=== PATIENT | male | born 1975 | race Caucasian/White ===

== ENCOUNTER 2016-10-22 18:10 | Inpatient (IN) ==
[2016-10-22] MEDS ORDERED: NITROGLYCERIN SL 0.4 MG TABLET SL PRN (18:16)
[2016-10-22] MEDS ORDERED: ASPIRIN 325 MG TABLET PO STA (18:16)
--- NOTE | 2016-10-22 18:24 | EKG Report ---
Stationary ECG Study [facility] ER Test Date: 10/22/2016 6:23:12 PM Pat Name: KEISHA AGUILAR Department: Room: Gender: M Electrical Tech/Project Manager: : 1975 Requested by: Radhika Tang Order Number: [id number] Reading MD: RAYSHAWN INFANTE Intervals Reeder Rate: 102 P: 52 NM: 173 QRS: -6 QRSD: 95 T: 53 QT: 322 QTc: 380 Interpretive Statements SINUS TACHYCARDIA INCOMPLETE RBBB Electronically Signed On 10-24-16 15:52:13 CDT by RAYSHAWN INFANTE [email or web address]
[2016-10-22 18:39] LABS: Basophils # 0.1 10*3/uL (0.0-0.2); Basophils % 0.7 % (0.0-0.8); Eosinophils # 0.2 10*3/uL (0.0-0.87); Eosinophils % 2.4 % (0.00-10.9); Hematocrit 35.1 VOL% (42.0-52.0); Immature Granulocytes % 0.6 %; Immature Granulocytes Absolute 0.04 #; Lymphocytes # 2.2 10*3/uL (1.4-4.0); Lymphocytes % 31.4 % (21.2-54.2); Mean Corpuscular Hemoglobin 30 PG (27-34); Mean Corpuscular Volume 81.6 FL (87-102); Mean Platelet Volume 10.5 FL (9.6-12.0); Monocytes # 0.4 10*3/uL (0.11-0.8); Neutrophils # 4.2 10*3/uL (1.4-7.4); Neutrophils % 59.9 % (38.7-73.9); Platelet Count 227 T/CUMM (130-400); Red Cell Distribution Width 13.2 % (9.3-17.3)
[2016-10-22] MEDS ORDERED: ASPIRIN 325 MG TABLET ONE (18:47)
[2016-10-22] MEDS ORDERED: NITROGLYCERIN SL 0.4 MG TABLET SL ONE (18:47)
--- NOTE | 2016-10-22 18:53 | XRay Report ---
XR chest 1V portable Indication: Chest pain. Comparison: Chest x-ray 04/22/2016 Technique: Portable AP chest was performed. Findings: Heart size is normal. Pulmonary vasculature appears within normal limits. No significant abnormality of the mediastinal contours demonstrated. Lungs are clear. Bones and soft tissues demonstrate no significant abnormalities. Impression: 1. No evidence of acute pathology. 10/22/2016 6:49 PM PROCEDURE INTERPRETED AT [facility] DEPARTMENT OF RADIOLOGY Final Report Signed by: Dr. Josiah Mittal
[2016-10-22 19:03] LABS: Apearance,Urine CLEAR (Clear); Bilirubin,Urine Negative (Negative); Blood, Urine Negative (Negative); Glucose,Urine (UA) >=500 mg/dL (Negative); Hyaline Casts,Urine 1 /LPF (0-3); Ketones,Urine 5 mg/dL (Negative); Mucus,Urine Occasional /LPF (Occasional); Nitrite,Urine Negative (Negative); Protein,Urine Negative; RBC,Urine <1 /HPF (0-4); Squamous Epithelial Cell,Urine Occasional /HPF (0-10); Urine Color Yellow (Yellow); Urine Specific Gravity 1.025 (1.001-1.035); Urine Urobilinogen < 2.0 EU/DL (0.2-1.0); WBC,Urine 3 /HPF (0-6)
[2016-10-22 19:08] LABS: Barbiturates Screen,Urine Negative (Negative); Benzodiazepines Screen,Urine Negative (Negative); Cannabinoid Screen,Urine Negative (Negative); Opiate Screen,Urine Negative (Negative); Phencyclidine Screen,Urine Negative (Negative)
[2016-10-22 19:26] LABS: Albumin 3.5 G/DL (3.4-5.0); Bilirubin,Total 0.6 MG/DL (0.2-1.0); Calcium 9.1 MG/DL (8.5-10.1); Osmolality,Calculated 288.9 MOS/KG (273-304); Potassium 4.1 MMOL/L (3.5-5.1); Total Protein 7.4 G/DL (6.4-8.3)
[2016-10-22] MEDS ORDERED: INSULIN LISPRO 100 UNIT/ML SUBCUT STA (19:28)
[2016-10-22] MEDS ORDERED: INSULIN LISPRO 100 UNIT/ML SUBCUT ONE (19:36)
[2016-10-22] MEDS ORDERED: SODIUM CHLORIDE 0.9% 1,000 ML IV STA (20:31)
--- NOTE | 2016-10-22 20:42 | CT Report ---
CT chest PE study Indication: Radicular chest pain. Comparison: None. Technique: CT of the chest was performed following the administration of intravenous contrast. In addition to multiple contiguous axial source images obtained from the thoracic inlet through the upper abdomen, coronal and sagittal MPR series were performed as were thin slab MIP reconstructions in the coronal and sagittal plane. The CT examination was performed using one or more of the following dose reduction techniques: Automatic exposure control, adjustment of the mA and kV according to patient size, or iterative reconstruction techniques. Findings: The pulmonary artery averages 244 Hounsfield units of attenuation. No filling defects are present centrally to suggest pulmonary artery embolus. The segmental and subsegmental branches of the pulmonary artery are not well opacified. Lungs are clear. No pleural effusions are present. No endobronchial lesions are demonstrated. Aorta demonstrates no significant abnormality. 4 vessel arch anatomy is present. Heart size is normal. Esophagus is unremarkable. Gallbladder is surgically absent. The pancreas demonstrates peripancreatic fat stranding compatible with inflammation and acute pancreatitis. Upper abdomen is otherwise unremarkable. The imaged bony structures as well as soft tissues and musculature of the chest wall demonstrate no significant abnormalities. Impression: 1. Findings compatible with acute pancreatitis. Correlation with serum lipase is recommended. 2. No acute findings are demonstrated within the chest. There is minimal limitation with the interpretation of the study secondary to poor opacification of segmental and subsegmental branches of the pulmonary artery. Thrombus cannot be excluded within the subsegmental branches. 10/22/2016 8:37 PM PROCEDURE INTERPRETED AT [facility] DEPARTMENT OF RADIOLOGY Final Report Signed by: Dr. Josiah Mittal
[2016-10-22] MEDS ORDERED: GLUCAGON 1 MG VIAL IM PRN (21:03)
[2016-10-22] MEDS ORDERED: DEXTROSE 50% 25 GM/50 ML VIAL IV PRN (21:03)
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
[2016-10-22] MEDS: SODIUM CHLORIDE 0.9% 1,000 ML IV SCH (22:49)
[2016-10-22] MEDS: ENOXAPARIN 40 MG/0.4 ML SYRINGE SUBCUT SCH (22:54)
[2016-10-22] MEDS: INSULIN GLARGINE 100 UNIT/ML SUBCUT SCH (22:54)
[2016-10-22] MEDS ORDERED: DEXTROSE 50% 25 GM/50 ML SYRINGE IV PRN (23:00)
[2016-10-23] MEDS: ZALEPLON 5 MG CAPSULE PO PRN ×2 (02:51→22:49)
[2016-10-23] MEDS: ONDANSETRON 4 MG/2 ML VIAL IV PRN ×3 (05:43→22:50)
[2016-10-23] MEDS: SODIUM CHLORIDE 0.9% 1,000 ML IV SCH ×3 (05:45→22:53)
[2016-10-23 07:01] LABS: Osmolality,Calculated 282.8 MOS/KG (273-304); Potassium 3.8 MMOL/L (3.5-5.1)
[2016-10-23 08:34] LABS: Basophils % 0.7 % (0.0-0.8); Eosinophils # 0.2 10*3/uL (0.0-0.87); Eosinophils % 3.5 % (0.00-10.9); Hemoglobin 12.1 GM/DL (14.0-18.0); Immature Granulocytes % 0.7 %; Immature Granulocytes Absolute 0.04 #; Lymphocytes # 1.9 10*3/uL (1.4-4.0); Lymphocytes % 32.7 % (21.2-54.2); Mean Corpuscular HGB Conc 35.6 GM/DL (32-36); Mean Corpuscular Hemoglobin 30 PG (27-34); Mean Corpuscular Volume 83.1 FL (87-102); Mean Platelet Volume 11.4 FL (9.6-12.0); Monocytes # 0.4 10*3/uL (0.11-0.8); Monocytes % 6.7 % (1.7-12.7); Neutrophils # 3.3 10*3/uL (1.4-7.4); Neutrophils % 55.7 % (38.7-73.9); Platelet Count 213 T/CUMM (130-400); Red Blood Count 4.09 MC/CUMM (3.8-5.5); Red Cell Distribution Width 13.3 % (9.3-17.3); White Blood Count 5.9 T/CUMM (4-12)
[2016-10-23] MEDS: PREGABALIN 75 MG CAPSULE PO SCH ×2 (08:58→20:53)
[2016-10-23] MEDS: INSULIN REGULAR 100 UNIT/ML SUBCUT SCH ×4 (08:58→22:40)
[2016-10-23] MEDS: glipiZIDE 10 MG TABLET PO SCH ×2 (08:58→20:53)
[2016-10-23] MEDS: LOSARTAN 50 MG TABLET PO SCH (08:58)
[2016-10-23] MEDS: PANTOPRAZOLE 40 MG TABLET PO SCH (08:59)
[2016-10-23] MEDS ORDERED: CITALOPRAM 40 MG TABLET PO SCH (09:00)
--- NOTE | 2016-10-23 10:24 | Hospitalist Progress Note ---
Assessment and Plan (1) Periumbilical hernia Status: Chronic Assessment and plan: Impression: 1. Umbilical hernia. He does not have pancreatitis. PR has been ruled out with negative biomarkers. Plan: Await surgical evaluation. This note was completed using [employer] voice recognition software. There may be ore digger errors as a result. Current Visit: Yes Hospitalist: Subjective Interval history: Follow-up abdominal pain. The patient says that his pain is coming from a known umbilical hernia. He says that this has been present for a while, but started hurting a few days ago. For some reason, he received a CT pulmonary angiogram, and it did not show any pulmonary emboli. It did show some possible inflammation of the pancreas, but pancreatic markers were normal. He is also had several negative troponins which were drawn due to his "elevated cardiac risk." Exam - Constitutional Vitals: Period Temp Pulse Resp BP Sys/Hammer Pulse Ox Last 24 Hr 96.2 F-97.8 F 82-105 17-20 126-169/67-123 95-98 Vital signs are noted above. Heart is regular with no murmur or gallop. Lungs are clear with no rales or wheezes. Abdomen is tender over the anticipated area of the umbilical hernia. There is some firmness in the area and tenderness. He is awake and alert Results - Labs CBC & BMP: 10/23/16 05:24 10/23/16 05:24 Lab Results: I have reviewed the past 24 hour labs Specialty Discharge - Follow Up or Referrals
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
[2016-10-23] MEDS ORDERED: ceFAZolin 2,000 MG in PREMIX 1 EACH IV ONE (11:10)
[2016-10-23] MEDS: CITALOPRAM 20 MG TABLET PO SCH (20:53)
[2016-10-23] MEDS: ROSUVASTATIN 20 MG TABLET PO SCH (20:53)
[2016-10-23] MEDS: ENOXAPARIN 40 MG/0.4 ML SYRINGE SUBCUT SCH (20:53)
[2016-10-23] MEDS: ALLOPURINOL 300 MG TABLET PO SCH (20:53)
[2016-10-23] MEDS: INSULIN GLARGINE 100 UNIT/ML SUBCUT SCH (22:39)
[2016-10-24] MEDS: SODIUM CHLORIDE 0.9% 1,000 ML IV SCH ×3 (06:10→19:33)
[2016-10-24] MEDS: INSULIN REGULAR 100 UNIT/ML SUBCUT SCH ×4 (08:36→21:07)
[2016-10-24] MEDS ORDERED: BUPIVACAINE 0.25% /EPI 10 ML VIAL ONE (08:40)
[2016-10-24] MEDS ORDERED: LIDOCAINE 1%/EPI INJ 20 ML VIAL ONE (08:40)
[2016-10-24] MEDS ORDERED: INSULIN REGULAR 100 UNIT/ML ONE (08:56)
[2016-10-24] MEDS ORDERED: INSULIN REGULAR 100 UNIT/ML IV ONE (08:59)
[2016-10-24] MEDS ORDERED: GLUCAGON 1 MG VIAL IM PRN (10:25)
[2016-10-24] MEDS ORDERED: DEXTROSE 50% 25 GM/50 ML SYRINGE IV PRN (10:25)
--- NOTE | 2016-10-24 10:25 | Operative Note ---
Date of procedure: 10/24/16 Pre-op diagnosis: Recurrent incarcerated incisional hernia at umbilicus Post-op diagnosis: same Procedure: Repair recurrent incarcerated incisional hernia at umbilicus Findings and technique: After informed consent was obtained the patient was brought the operating room and placed in supine position. After successful induction of general anesthesia the patient's abdomen was prepped and draped in usual sterile fashion. His most recent CT scan did not go low enough to show the hernia. I looked at a CT scan from May which did show the hernia at the level of his previous mesh repair. I could palpate the hard mass which is been very tender in this patient just above and to the left of the umbilicus. Local anesthesia was infiltrated and a small vertical incision made above the umbilicus and sharp dissection carried down to this mass of indurated adipose tissue which appeared to represent herniated preperitoneal fat. This fat laid anterior to his previous mesh which could be visualized posterior to a fascial defect. The mesh was intact and in place. This indurated fat tracked down along the anterior aspect of the mesh to the inferior edge of the mesh where it was protruding just below the level of the umbilicus. I did a preperitoneal dissection anterior to his old mesh and passed the edge of the mesh in all directions. I did not try to remove this mesh as it was very well incorporated. I then took a piece of surgery mesh and cut this in an oval shape about 8 x 8 cm in size and this overlapped the old fascial defect is where well as another fascial defect just behind the umbilicus that was about a centimeter in size and then went down below this. This went lateral to the mesh to the right. This mesh was sutured to the posterior aspect of the fascia taking full-thickness bites through the fascia and these were done in a horizontal mattress fashion circumferentially going beneath the umbilical defect and well behind the fascial edges. This was then sutured as well to the edges of the old fascial defect were overlapped this as well. The wound was irrigated and good hemostasis noted. The subcutaneous layer was closed with multiple interrupted 3-0 Vicryl suture and skin with skin clips. He appeared to tolerate the procedure well. Anesthesia: GETA, local Surgeon / Physician: Ney Hdez III. Estimated blood loss: minimal Specimens: none sent Condition: stable Disposition: PACU Results - Labs CBC & BMP: 10/23/16 05:24 10/23/16 05:24 Discharge Plan - Discharge Medications No Action Pregabalin [Lyrica] 100 mg PO BID Losartan [Cozaar] 100 mg PO QAM Diclofenac Sodium 75 mg PO BID PRN PRN Reason: Pain Rosuvastatin [Crestor] 20 mg PO BEDTIME Citalopram [CeleXA] 20 mg PO BID Allopurinol 300 mg PO QPM metFORMIN [Glucophage] 850 mg PO BID W/MEALS #30 tablet glipiZIDE [Glipizide] 10 mg PO Q12HR #60 tablet Colchicine [Colcrys] 0.6 mg PO DAILY PRN PRN Reason: Gout Meloxicam 15 mg PO DAILY PRN PRN Reason: Muscle Spasm Pantoprazole Sodium [Protonix] 40 mg PO AC SUPPER Insulin Glargine [Lantus] 50 unit SUBCUT BEDTIME - Follow Up or Referral - Forms/Instructions Instructions: Chest Pain (ED)
[2016-10-24] MEDS ORDERED: DESFLURANE 1 UNIT/15 MINUTE INH ONE (10:39)
[2016-10-24] MEDS ORDERED: PROPOFOL 200 MG/20 ML VIAL IV ONE (10:39)
[2016-10-24] MEDS ORDERED: MIDAZOLAM 2 MG/2 ML VIAL ONE (10:40)
[2016-10-24] MEDS ORDERED: ONDANSETRON 4 MG/2 ML VIAL ONE (10:40)
[2016-10-24] MEDS ORDERED: fentaNYL 100 MCG/2 ML VIAL ONE (10:40)
[2016-10-24] MEDS ORDERED: ROCURONIUM 100 MG/10 ML VIAL IV ONE (10:40)
[2016-10-24] MEDS ORDERED: SUCCINYLCHOLINE 200 MG/10 ML VIAL ONE (10:40)
[2016-10-24] MEDS: PANTOPRAZOLE 40 MG TABLET PO SCH (13:51)
[2016-10-24] MEDS: PREGABALIN 75 MG CAPSULE PO SCH ×2 (13:51→21:09)
[2016-10-24] MEDS: CITALOPRAM 20 MG TABLET PO SCH ×2 (13:52→21:09)
[2016-10-24] MEDS: glipiZIDE 10 MG TABLET PO SCH ×2 (13:52→21:09)
[2016-10-24] MEDS: LOSARTAN 50 MG TABLET PO SCH (14:59)
--- NOTE | 2016-10-24 15:59 | Hospitalist Progress Note ---
Assessment and Plan (1) Periumbilical hernia Status: Chronic Assessment and plan: Impression: 1. Umbilical hernia. He does not have pancreatitis. MO has been ruled out with negative biomarkers. 2. Type II DM, glucoses around 300. Plan: Continue current plan of care for diabetes. Discharge when cleared by surgery This note was completed using [email or web address] voice recognition software. There may be pediatric nephrologist errors as a result. Current Visit: Yes Hospitalist: Subjective Interval history: Follow-up umbilical hernia and type II DM. The patient is now postop from the hernia repair. He complains of some incisional pain that is not unexpected. Glucoses have been around 300. Exam - Constitutional Vitals: Period Temp Pulse Resp BP Sys/Hammer Pulse Ox Last 24 Hr 97.0 F-99.7 F 82-102 18-20 133-164/63-91 93-98 Vital signs are noted above. Heart is regular with distant tones and no murmur. Chest is clear anteriorly. Abdomen reveals some positive bowel sounds. Since he is immediately postop, I did not palpate for mass. He is sleepy but arousable. Results - Labs CBC & BMP: 10/23/16 05:24 10/23/16 05:24 Lab Results: I have reviewed the past 24 hour labs Specialty Discharge - Follow Up or Referrals
--- NOTE | 2016-10-24 16:37 | Anesthesia Post-Op ---
Anesthesia Post OP - Post Ansesthetic Evaluation Patient seen in post op: Yes Resp: within normal limits CV: within normal limits Mental: within normal limits Temp: within normal limits Cett-[id number]-[id number]: within normal limits Nausea and Vomiting: within normal limits Pain: within normal limits
[2016-10-24] MEDS: INSULIN GLARGINE 100 UNIT/ML SUBCUT SCH (21:07)
[2016-10-24] MEDS: ENOXAPARIN 40 MG/0.4 ML SYRINGE SUBCUT SCH (21:08)
[2016-10-24] MEDS: ZALEPLON 5 MG CAPSULE PO PRN (21:08)
[2016-10-24] MEDS: ROSUVASTATIN 20 MG TABLET PO SCH (21:09)
[2016-10-24] MEDS: ALLOPURINOL 300 MG TABLET PO SCH (21:09)
[2016-10-25] MEDS: MORPHINE 2 MG/1 ML SYRINGE IV PRN ×2 (00:34→03:55)
[2016-10-25] MEDS: ONDANSETRON 4 MG/2 ML VIAL IV PRN ×2 (00:37→03:56)
[2016-10-25] MEDS: SODIUM CHLORIDE 0.9% 1,000 ML IV SCH (03:51)
[2016-10-25 07:43] VITALS: BP 143/82
[2016-10-25] MEDS: INSULIN REGULAR 100 UNIT/ML SUBCUT SCH ×2 (08:59→12:16)
[2016-10-25] MEDS: LOSARTAN 50 MG TABLET PO SCH (09:00)
[2016-10-25] MEDS: glipiZIDE 10 MG TABLET PO SCH (09:00)
[2016-10-25] MEDS: PANTOPRAZOLE 40 MG TABLET PO SCH (09:00)
[2016-10-25] MEDS: CITALOPRAM 20 MG TABLET PO SCH (09:00)
[2016-10-25] MEDS: PREGABALIN 75 MG CAPSULE PO SCH (09:00)
--- NOTE | 2016-10-25 09:08 | Event Note ---
He feels well. His abdomen is nondistended and his incision looks good. He had some oozing of serosanguineous fluid postoperatively but this stopped during the night. His wound is unremarkable. I see no signs of infection or recurrence. He should be fine for discharge from a surgery standpoint and I will follow him up in the office in 1-2 weeks.
--- NOTE | 2016-10-25 09:38 | Discharge Summary ---
Hospital Course - Hospital Course Hospital Course: 41-year-old white male with history of diabetes, hypertension, gout, and sleep apnea admitted to the emergency room on 10/22/2016 with complaints of chest pain. CT scan of the chest was done that showed no pulmonary embolism but did report a peripancreatic fat stranding consistent with acute pancreatitis. His amylase and lipase were normal. He was also noted to have elevated blood sugars of more than 600. Patient had negative biomarkers and normal EKG. IN was thus ruled out. Patient was noted to have an incarcerated incisional hernia and Dr. Ketty NORMAN was consulted. He was taken to the operating room on 10/24/[address] Ketty NORMAN repaired his recurrent incarcerated incisional hernia at the umbilicus. Patient had some old mesh that was well incorporated and not removed. Dr. Ketty NORMAN took another piece of mesh and sutured this to the posterior aspect of the fascia taking full-thickness bites and overlapping the old and new defect. Postoperatively patient has done well. He does have some serosanguineous drainage that has seemed to have stopped since last night. As far as surgery is concerned he can be discharged home with a 1- 2 week follow-up with Dr. Ketty NORMAN. Patient has been instructed not to do any heavy lifting for the next month. Patient's blood pressure has been stable and his blood sugars are under much better control. He will need to follow-up with his primary care physician in 2 weeks. Complete discharge instructions were given to the patient and his family member in the room. Care coordination , chart review, and completed discharge paperwork took approximately 37 minutes. - Time spent with patient Time with patient DS: Greater than 30 minutes Diagnosis - Discharge Diagnosis (1) Gout Status: Chronic (2) Abdominal pain Status: Resolved (3) Chest pain Status: Resolved (4) Diabetes mellitus with hyperglycemia Status: Resolved (5) Hypertension Status: Chronic (6) Sleep apnea Status: Chronic (7) Incisional hernia, incarcerated Status: Resolved Specialty Discharge - Follow Up or Referrals Discharge Plan - Discharge Data Disposition: Disch To Home/Self Care Condition at Discharge: Stable Discharge Diet: diabetic diet Activity: no lifting Hygiene: may shower Driving: other (No driving if taking pain medications) Contact your physician if you experience:: fever over 101, Redness or swelling, Nausea/Vomiting Wound / Dressing Care Instructions: Okay to shower daily with mild soap and water, pat dry, okay to leave open to the air or cover with Band-Aids - Discharge Medications New HYDROcodone/ACETAMIN 5-325 [Entriken 5-325] 1 tablet PO Q4H PRN #30 tablet PRN Reason: Pain Mild (1-3) Continue Pregabalin [Lyrica] 100 mg PO BID Losartan [Cozaar] 100 mg PO QAM Diclofenac Sodium 75 mg PO BID PRN PRN Reason: Pain Rosuvastatin [Crestor] 20 mg PO BEDTIME Citalopram [CeleXA] 20 mg PO BID Allopurinol 300 mg PO QPM metFORMIN [Glucophage] 850 mg PO BID W/MEALS #30 tablet glipiZIDE [Glipizide] 10 mg PO Q12HR #60 tablet Colchicine [Colcrys] 0.6 mg PO DAILY PRN PRN Reason: Gout Meloxicam 15 mg PO DAILY PRN PRN Reason: Muscle Spasm Pantoprazole Sodium [Protonix] 40 mg PO AC SUPPER Insulin Glargine [Lantus] 50 unit SUBCUT BEDTIME - Follow Up or Referral Follow Up: PCP,family [Other] - 2 Weeks Ney Hdez III., MD [Physician] - 1 Week - Forms/Instructions Instructions: Chest Pain (ED) Exam - Constitutional Vitals: Period Temp Pulse Resp BP Sys/Hammer Pulse Ox Last 24 Hr 97.0 F-98.6 F 62-102 18-20 130-164/63-92 93-98 Exam: 41-year-old white male, no acute distress, alert and oriented Chest clear CV regular rate and rhythm Abdomen obese, appropriately tender, incision looks good, mild serosanguineous drainage on last night stressing Extremities no edema Discharge Results Labs on day of discharge: Labs from last 24 hours 10/25/16 10/24/16 10/24/16 06:52 20:31 16:06 POC Glucose 194 H 253 H 259 H 10/24/16 12:11 POC Glucose 337 H DS: Provider Date of admission: 10/22/16 20:57 Primary care physician: Hayley Beltrán NP Attending physician on admission: Eagle Tan MD Consults: 10/22/16 21:27 Consult to Physician [CONS] Routine Comment: Hernia Consulting Provider: Ney Hdez III. Consult to Specialist Group: Surgery When should Consulting Provider be notified: In am Person Notified: aware Discharging clinician: TED Ashford Expected date of discharge: 10/25/16
--- NOTE | 2016-10-25 11:29 | Pathology Report from [facility] ---
[facility] [place] ACCESSION # : [id number] PATIENT NAME : Keisha Aguilar ORDERING DR : DEVIN ROBERT III, MD CLINICAL HX: Recurrent incarcerated incisional hernia POST-OP DX: Same SPECIMEN INFO: Incarcerated hernia fat GROSS DESCRIPTION: Received in formalin labeled KEISHA AGUILAR are two pink blackwell fatty tissue fragments measuring together 1.8 x 3.5 cm. Supervisor [employer] sections are submitted in one cassette. DIAGNOSIS FOR KEIHSA AGUILAR: Benign fibroadipose tissue c/w incarcerated incisional hernia contents. COLLECTED DATE: 10/25/2016 [facility] REPORT DATE: 10/25/2016 ELECTRONICALLY SIGNED BY: Perry Hankins M.D. 10/25/2016 - 10:40:07 JOSE
--- NOTE | 2016-11-02 08:23 | Physician Query Form ---
CLICK EDIT DOCUMENT TO SELECT QUERY ANSWER --> OK --> SIGN Sushma Mittal RN, CCDS Certified Clinical Branch Services Manager W) [phone] (f) [phone] [email or web address] PROVIDERS: Make your selection(s) from the choices in EACH section by typing an "x" and enter comments in the comment section. Please use your independent medical judgment in providing your response. This request does not imply that any particular answer is desired or expected. CLINICAL INDICATORS: (Providers should not edit this section) Patient "presented with chest pain seemed like atypical chest pain which is reproducible", "chronic abdominal pain and the hernia above umbilicus which is reducible", "CT scan of the chest was done that showed no pulmonary embolism" and MO was ruled out; "Repair recurrent incarcerated incisional hernia at umbilicus" was done. Based on the above, could you clarify the appropriate diagnosis, if significant , that supports the above abnormalities and additional evaluation, monitoring, and/or treatment rendered: ( x) Chest pain was not due to the chronic abd pain (Hernia) ( ) Chest pain was due to the chronic abd pain (Hernia) ( ) Chest pain due to ( ) Other, please specify: ( ) Clinically unable to determine COMMENTS: PLEASE ALSO DOCUMENT RESPONSE IN PROGRESS NOTES AND/OR DISCHARGE SUMMARY Use of terms such as suspected, likely, or probable (associated with a specific diagnosis that is being evaluated, monitored, or treated as if it exists) are acceptable and can be restated in the discharge summary if not ruled out. MTDD
== END 2016-10-25 12:40 | disposition home or self-care (01) | DRG 988 ==
LOC: N.ED 18:10 → N.EDINP 20:57 → SUATTDRO 20:57 → N.EDINP 22:19 → N.5E 22:39
PROVIDERS: ADMIT Internal Medicine; ATTEND Internal Medicine

== ENCOUNTER 2017-01-28 13:50 | Inpatient (IN) ==
[2017-01-28] MEDS ORDERED: SODIUM CHLORIDE 0.9% 1,000 ML IV STA (14:04)
[2017-01-28] MEDS ORDERED: ACETAMINOPHEN 500 MG TABLET PO STA (14:05)
[2017-01-28] MEDS ORDERED: ONDANSETRON 4 MG/2 ML VIAL IV STA (14:30)
[2017-01-28] MEDS ORDERED: ACETAMINOPHEN 500 MG TABLET ONE (14:32)
[2017-01-28] MEDS ORDERED: ONDANSETRON 4 MG/2 ML VIAL ONE (14:32)
[2017-01-28 14:37] LABS: Basophils # 0.1 10*3/uL (0.0-0.2); Basophils % 0.5 % (0.0-0.8); Eosinophils # 0.3 10*3/uL (0.0-0.87); Hematocrit 34.5 VOL% (42.0-52.0); Hemoglobin 12.3 GM/DL (14.0-18.0); Immature Granulocytes % 0.5 %; Immature Granulocytes Absolute 0.05 #; Lymphocytes # 1.9 10*3/uL (1.4-4.0); Lymphocytes % 17.2 % (21.2-54.2); Mean Corpuscular HGB Conc 35.7 GM/DL (32-36); Mean Corpuscular Hemoglobin 30 PG (27-34); Mean Platelet Volume 11.2 FL (9.6-12.0); Monocytes # 0.5 10*3/uL (0.11-0.8); Monocytes % 4.8 % (1.7-12.7); Platelet Count 215 T/CUMM (130-400); Red Blood Count 4.06 MC/CUMM (3.8-5.5); Red Cell Distribution Width 13.7 % (9.3-17.3); White Blood Count 10.8 T/CUMM (4-12)
[2017-01-28 15:01] LABS: Alanine Aminotransferase 65 U/L (16-61); Albumin 3.9 G/DL (3.4-5.0); Alkaline Phosphatase 78 U/L (45-117); Aspartate Amino Transferase 101 U/L (0-37); Blood Urea Nitrogen 24 MG/DL (7-18); Glucose 173 MG/DL (74-106); Magnesium 1.8 MG/DL (1.8-2.4); Osmolality,Calculated 290.1 MOS/KG (273-304); Potassium 4.1 MMOL/L (3.5-5.1); Sodium 142 MMOL/L (136-145); Total Protein 6.5 G/DL (6.4-8.3); Troponin I Only < 0.015 NG/ML (0.00-0.045)
[2017-01-28 15:24] LABS: PT Patient Result 10.3 SECS
[2017-01-28 15:31] LABS: Barbiturates Screen,Urine Negative (Negative); Benzodiazepines Screen,Urine Negative (Negative); Cannabinoid Screen,Urine Negative (Negative); Opiate Screen,Urine Negative (Negative); Phencyclidine Screen,Urine Negative (Negative)
[2017-01-28 15:36] LABS: Apearance,Urine CLOUDY (Clear); Bilirubin,Urine Small mg/dL (Negative); Blood, Urine Negative (Negative); Glucose,Urine (UA) Negative (Negative); Hyaline Casts,Urine 55 /LPF (0-3); Ketones,Urine 5 mg/dL (Negative); Mucus,Urine Occasional /LPF (Occasional); Nitrite,Urine Negative (Negative); Protein,Urine 100 MG/DL; RBC,Urine 2 /HPF (0-4); Squamous Epithelial Cell,Urine Occasional /HPF (0-10); Urine Color Amber (Yellow); Urine Specific Gravity 1.029 (1.001-1.035); WBC,Urine 9 /HPF (0-6)
[2017-01-28] MEDS ORDERED: MORPHINE 2 MG/1 ML SYRINGE IV STA (16:25)
[2017-01-28] MEDS ORDERED: MORPHINE 2 MG/1 ML SYRINGE ONE (16:28)
[2017-01-28] MEDS ORDERED: DEXTROSE 50% 25 GM/50 ML VIAL IV PRN (16:57)
[2017-01-28] MEDS ORDERED: GLUCAGON 1 MG VIAL IM PRN (16:57)
[2017-01-28] MEDS ORDERED: ACETAMINOPHEN 325 MG TABLET PO PRN (16:57)
[2017-01-28] MEDS ORDERED: LORazepam 2 MG/1 ML VIAL IV PRN (17:00)
[2017-01-28] MEDS ORDERED: COLCHICINE 0.6 MG TABLET PO PRN (17:02)
[2017-01-28] MEDS ORDERED: INFLUENZA VIRUS VACCINE 0.5 ML SYRINGE IM ONE (18:29)
[2017-01-28] MEDS ORDERED: PNEUMOCOCCAL VACCINE (23 VALENT) 0.5 ML VIAL IM ONE (18:29)
[2017-01-28] MEDS: SODIUM CHLORIDE 0.9% 1,000 ML IV SCH (18:30)
[2017-01-28] MEDS: cefTRIAXone 1,000 MG in SYRINGE 1 EACH IV SCH (18:37)
[2017-01-28] MEDS: ALLOPURINOL 300 MG TABLET PO SCH ×2 (18:41→21:43)
[2017-01-28 18:47] LABS: Troponin I Only < 0.015 NG/ML (0.00-0.045)
[2017-01-28] MEDS ORDERED: ALLOPURINOL 300 MG TABLET PO SCH (19:00)
[2017-01-28] MEDS: PREGABALIN 100 MG CAPSULE PO SCH (21:27)
[2017-01-28] MEDS: CITALOPRAM 20 MG TABLET PO SCH (21:27)
[2017-01-28] MEDS: levETIRAcetam 500 MG TABLET PO SCH (21:28)
[2017-01-28] MEDS: glipiZIDE 10 MG TABLET PO SCH (21:28)
[2017-01-28] MEDS: ROSUVASTATIN 20 MG TABLET PO SCH (21:33)
[2017-01-28] MEDS: ENOXAPARIN 40 MG/0.4 ML SYRINGE SUBCUT SCH (21:35)
[2017-01-28] MEDS: INSULIN GLARGINE 100 UNIT/ML SUBCUT SCH (21:37)
[2017-01-28] MEDS: INSULIN REGULAR 100 UNIT/ML SUBCUT SCH (21:37)
[2017-01-28] MEDS: CIPROFLOXACIN/DEXAMETHASONE OTIC SUSP 7.5 ML BOTTLE LEFT EAR SCH (21:43)
[2017-01-29 03:29] LABS: Basophils % 0.4 % (0.0-0.8); Eosinophils # 0.4 10*3/uL (0.0-0.87); Eosinophils % 4.5 % (0.00-10.9); Hematocrit 34.4 VOL% (42.0-52.0); Hemoglobin 11.9 GM/DL (14.0-18.0); Immature Granulocytes % 0.6 %; Immature Granulocytes Absolute 0.05 #; Lymphocytes # 2.5 10*3/uL (1.4-4.0); Mean Corpuscular HGB Conc 34.6 GM/DL (32-36); Mean Corpuscular Hemoglobin 30 PG (27-34); Mean Corpuscular Volume 85.8 FL (87-102); Mean Platelet Volume 11.3 FL (9.6-12.0); Monocytes # 0.4 10*3/uL (0.11-0.8); Monocytes % 4.3 % (1.7-12.7); Neutrophils # 5.6 10*3/uL (1.4-7.4); Neutrophils % 62.2 % (38.7-73.9); Platelet Count 186 T/CUMM (130-400); Red Blood Count 4.01 MC/CUMM (3.8-5.5); Red Cell Distribution Width 13.7 % (9.3-17.3)
[2017-01-29] MEDS: SODIUM CHLORIDE 0.9% 1,000 ML IV SCH ×3 (03:55→22:42)
[2017-01-29 04:01] LABS: Calcium 8.5 MG/DL (8.5-10.1); Osmolality,Calculated 284.5 MOS/KG (273-304); Potassium 4.1 MMOL/L (3.5-5.1)
[2017-01-29] MEDS: INSULIN REGULAR 100 UNIT/ML SUBCUT SCH ×4 (07:30→21:22)
[2017-01-29] MEDS: CITALOPRAM 20 MG TABLET PO SCH ×2 (08:15→21:17)
[2017-01-29] MEDS: glipiZIDE 10 MG TABLET PO SCH ×2 (08:15→21:18)
[2017-01-29] MEDS: PANTOPRAZOLE 40 MG TABLET PO SCH (08:16)
[2017-01-29] MEDS: levETIRAcetam 500 MG TABLET PO SCH ×2 (08:17→21:18)
[2017-01-29] MEDS: PREGABALIN 100 MG CAPSULE PO SCH ×2 (08:17→21:17)
[2017-01-29] MEDS: CIPROFLOXACIN/DEXAMETHASONE OTIC SUSP 7.5 ML BOTTLE LEFT EAR SCH ×2 (08:22→22:45)
[2017-01-29] MEDS: cefTRIAXone 1,000 MG in SYRINGE 1 EACH IV SCH (18:45)
[2017-01-29] MEDS: ALLOPURINOL 300 MG TABLET PO SCH (21:17)
[2017-01-29] MEDS: ROSUVASTATIN 20 MG TABLET PO SCH (21:18)
[2017-01-29] MEDS: INSULIN GLARGINE 100 UNIT/ML SUBCUT SCH (21:21)
[2017-01-29] MEDS: ENOXAPARIN 40 MG/0.4 ML SYRINGE SUBCUT SCH (21:23)
[2017-01-30] MEDS: SODIUM CHLORIDE 0.9% 1,000 ML IV SCH ×3 (05:52→21:30)
[2017-01-30] MEDS: INSULIN REGULAR 100 UNIT/ML SUBCUT SCH ×4 (08:09→22:30)
[2017-01-30] MEDS: glipiZIDE 10 MG TABLET PO SCH ×2 (09:14→21:29)
[2017-01-30] MEDS: PANTOPRAZOLE 40 MG TABLET PO SCH (09:14)
[2017-01-30] MEDS: PREGABALIN 100 MG CAPSULE PO SCH ×2 (09:15→21:29)
[2017-01-30] MEDS: CITALOPRAM 20 MG TABLET PO SCH ×2 (09:15→21:29)
[2017-01-30] MEDS: levETIRAcetam 500 MG TABLET PO SCH (09:15)
[2017-01-30] MEDS: CIPROFLOXACIN/DEXAMETHASONE OTIC SUSP 7.5 ML BOTTLE LEFT EAR SCH ×2 (09:18→21:33)
[2017-01-30] MEDS: ROSUVASTATIN 20 MG TABLET PO SCH (21:29)
[2017-01-30] MEDS: ALLOPURINOL 300 MG TABLET PO SCH (21:29)
[2017-01-30] MEDS: ENOXAPARIN 40 MG/0.4 ML SYRINGE SUBCUT SCH (21:31)
[2017-01-30] MEDS: INSULIN GLARGINE 100 UNIT/ML SUBCUT SCH (21:31)
[2017-01-30] MEDS: ONDANSETRON 4 MG/2 ML VIAL IV PRN (23:24)
[2017-01-31] MEDS: SODIUM CHLORIDE 0.9% 1,000 ML IV SCH ×2 (05:56→14:04)
[2017-01-31] MEDS: INSULIN REGULAR 100 UNIT/ML SUBCUT SCH ×4 (08:22→21:14)
[2017-01-31] MEDS: CITALOPRAM 20 MG TABLET PO SCH ×2 (09:10→21:12)
[2017-01-31] MEDS: PREGABALIN 100 MG CAPSULE PO SCH ×2 (09:10→21:12)
[2017-01-31] MEDS: glipiZIDE 10 MG TABLET PO SCH ×2 (09:10→21:12)
[2017-01-31] MEDS: PANTOPRAZOLE 40 MG TABLET PO SCH (09:11)
[2017-01-31] MEDS: CIPROFLOXACIN/DEXAMETHASONE OTIC SUSP 7.5 ML BOTTLE LEFT EAR SCH ×2 (09:11→21:52)
[2017-01-31] MEDS: ALLOPURINOL 300 MG TABLET PO SCH (21:12)
[2017-01-31] MEDS: ROSUVASTATIN 20 MG TABLET PO SCH (21:12)
[2017-01-31] MEDS: INSULIN GLARGINE 100 UNIT/ML SUBCUT SCH (21:13)
[2017-01-31] MEDS: ENOXAPARIN 40 MG/0.4 ML SYRINGE SUBCUT SCH (21:14)
[2017-01-31] MEDS: ONDANSETRON 4 MG/2 ML VIAL IV PRN (21:20)
[2017-02-01] MEDS: INSULIN REGULAR 100 UNIT/ML SUBCUT SCH ×4 (10:23→20:03)
[2017-02-01] MEDS: PREGABALIN 100 MG CAPSULE PO SCH ×2 (10:24→20:01)
[2017-02-01] MEDS: CIPROFLOXACIN/DEXAMETHASONE OTIC SUSP 7.5 ML BOTTLE LEFT EAR SCH ×2 (10:24→20:06)
[2017-02-01] MEDS: PANTOPRAZOLE 40 MG TABLET PO SCH (10:24)
[2017-02-01] MEDS: glipiZIDE 10 MG TABLET PO SCH ×2 (10:24→20:02)
[2017-02-01] MEDS: CITALOPRAM 20 MG TABLET PO SCH ×2 (10:24→20:01)
[2017-02-01] MEDS: ROSUVASTATIN 20 MG TABLET PO SCH (20:01)
[2017-02-01] MEDS: ALLOPURINOL 300 MG TABLET PO SCH (20:02)
[2017-02-01] MEDS: INSULIN GLARGINE 100 UNIT/ML SUBCUT SCH (20:04)
[2017-02-01] MEDS: ENOXAPARIN 40 MG/0.4 ML SYRINGE SUBCUT SCH (20:05)
[2017-02-01] MEDS: ONDANSETRON 4 MG/2 ML VIAL IV PRN (20:11)
[2017-02-01] MEDS: diphenhydrAMINE CAP 25 MG CAPSULE PO PRN (23:11)
[2017-02-02] MEDS: ONDANSETRON 4 MG/2 ML VIAL IV PRN ×4 (03:07→22:13)
[2017-02-02 06:01] LABS: Basophils # 0.1 10*3/uL (0.0-0.2); Basophils % 0.8 % (0.0-0.8); Eosinophils # 0.3 10*3/uL (0.0-0.87); Eosinophils % 4.3 % (0.00-10.9); Hematocrit 38.1 VOL% (42.0-52.0); Hemoglobin 13.3 GM/DL (14.0-18.0); Immature Granulocytes % 0.4 %; Immature Granulocytes Absolute 0.03 #; Lymphocytes # 2.9 10*3/uL (1.4-4.0); Lymphocytes % 36.1 % (21.2-54.2); Mean Corpuscular HGB Conc 34.9 GM/DL (32-36); Mean Corpuscular Hemoglobin 30 PG (27-34); Mean Corpuscular Volume 84.5 FL (87-102); Mean Platelet Volume 10.8 FL (9.6-12.0); Monocytes # 0.5 10*3/uL (0.11-0.8); Monocytes % 5.6 % (1.7-12.7); Neutrophils # 4.2 10*3/uL (1.4-7.4); Neutrophils % 52.8 % (38.7-73.9); Platelet Count 222 T/CUMM (130-400); Red Blood Count 4.51 MC/CUMM (3.8-5.5); Red Cell Distribution Width 13.5 % (9.3-17.3)
[2017-02-02 06:44] LABS: Calcium 9.1 MG/DL (8.5-10.1); Magnesium 1.8 MG/DL (1.8-2.4); Osmolality,Calculated 277.7 MOS/KG (273-304)
[2017-02-02 09:20] LABS: Basophils # 0.1 10*3/uL (0.0-0.2); Basophils % 0.7 % (0.0-0.8); Eosinophils # 0.3 10*3/uL (0.0-0.87); Eosinophils % 3.8 % (0.00-10.9); Hematocrit 39.6 VOL% (42.0-52.0); Hemoglobin 14.1 GM/DL (14.0-18.0); Immature Granulocytes % 0.4 %; Immature Granulocytes Absolute 0.04 #; Lymphocytes # 2.5 10*3/uL (1.4-4.0); Lymphocytes % 27.6 % (21.2-54.2); Mean Corpuscular HGB Conc 35.6 GM/DL (32-36); Mean Corpuscular Hemoglobin 30 PG (27-34); Mean Corpuscular Volume 84.4 FL (87-102); Mean Platelet Volume 10.6 FL (9.6-12.0); Monocytes # 0.5 10*3/uL (0.11-0.8); Monocytes % 5.1 % (1.7-12.7); Neutrophils # 5.6 10*3/uL (1.4-7.4); Neutrophils % 62.4 % (38.7-73.9); Platelet Count 236 T/CUMM (130-400); Red Blood Count 4.69 MC/CUMM (3.8-5.5); Red Cell Distribution Width 13.8 % (9.3-17.3)
[2017-02-02] MEDS: glipiZIDE 10 MG TABLET PO SCH ×2 (09:52→22:04)
[2017-02-02] MEDS: PANTOPRAZOLE 40 MG TABLET PO SCH (09:52)
[2017-02-02] MEDS: PREGABALIN 100 MG CAPSULE PO SCH ×2 (09:52→22:05)
[2017-02-02] MEDS: INSULIN REGULAR 100 UNIT/ML SUBCUT SCH ×4 (09:53→22:04)
[2017-02-02] MEDS: CITALOPRAM 20 MG TABLET PO SCH ×2 (09:53→22:05)
[2017-02-02 09:55] LABS: Blood Urea Nitrogen 13 MG/DL (7-18); Calcium 9.2 MG/DL (8.5-10.1); Glucose 225 MG/DL (74-106); Magnesium 1.8 MG/DL (1.8-2.4); Osmolality,Calculated 276.1 MOS/KG (273-304); Potassium 4.1 MMOL/L (3.5-5.1); Sodium 135 MMOL/L (136-145); Troponin I Only < 0.015 NG/ML (0.00-0.045)
[2017-02-02] MEDS: CIPROFLOXACIN/DEXAMETHASONE OTIC SUSP 7.5 ML BOTTLE LEFT EAR SCH ×2 (09:55→22:05)
[2017-02-02] MEDS: INSULIN GLARGINE 100 UNIT/ML SUBCUT SCH (22:03)
[2017-02-02] MEDS: ENOXAPARIN 40 MG/0.4 ML SYRINGE SUBCUT SCH (22:03)
[2017-02-02] MEDS: ALLOPURINOL 300 MG TABLET PO SCH (22:05)
[2017-02-02] MEDS: ROSUVASTATIN 20 MG TABLET PO SCH (22:05)
[2017-02-02] MEDS: diphenhydrAMINE CAP 25 MG CAPSULE PO PRN (22:15)
[2017-02-03] MEDS: INSULIN REGULAR 100 UNIT/ML SUBCUT SCH ×3 (08:14→16:10)
[2017-02-03] MEDS ORDERED: REGADENOSON 0.4 MG/5 ML SYRINGE IV ONE (12:46)
[2017-02-03] MEDS: CITALOPRAM 20 MG TABLET PO SCH (15:11)
[2017-02-03] MEDS: glipiZIDE 10 MG TABLET PO SCH (15:11)
[2017-02-03] MEDS: PREGABALIN 100 MG CAPSULE PO SCH (15:11)
[2017-02-03] MEDS: PANTOPRAZOLE 40 MG TABLET PO SCH (15:12)
[2017-02-03] MEDS: CIPROFLOXACIN/DEXAMETHASONE OTIC SUSP 7.5 ML BOTTLE LEFT EAR SCH (15:55)
[2017-02-03 16:29] VITALS: BP 123/66
== END 2017-02-03 17:30 | disposition home or self-care (01) | DRG 101 ==
LOC: EDUNIT# → N.ED 13:50 → N.EDINP 13:50 → OBSVTOIN 16:15 → INTOOBSV 16:20 → SUATTDRO 16:20 → N.EDINP 18:11 → N.4E 18:17
PROVIDERS: ADMIT Internal Medicine; ATTEND Internal Medicine

== ENCOUNTER 2017-09-12 00:19 | Inpatient (IN) ==
[2017-09-12] MEDS ORDERED: HYDROmorphone 2 MG/1 ML VIAL IV STA (00:54)
[2017-09-12] MEDS ORDERED: SODIUM CHLORIDE 0.9% 1,000 ML IV STA ×2 (00:54→02:46)
[2017-09-12] MEDS ORDERED: ONDANSETRON 4 MG/2 ML VIAL IV ONE (00:54)
[2017-09-12] MEDS ORDERED: fentaNYL 100 MCG/2 ML VIAL IV STA (01:04)
[2017-09-12] MEDS ORDERED: fentaNYL 100 MCG/2 ML VIAL ONE (01:04)
[2017-09-12 01:35] LABS: Basophils # 0.1 10*3/uL (0.0-0.2); Basophils % 0.4 % (0.0-0.8); Eosinophils # 0.1 10*3/uL (0.0-0.87); Eosinophils % 1.1 % (0.00-10.9); Hematocrit 40.8 VOL% (42.0-52.0); Hemoglobin 13.9 GM/DL (14.0-18.0); Immature Granulocytes % 0.4 %; Immature Granulocytes Absolute 0.05 #; Lymphocytes # 1.8 10*3/uL (1.4-4.0); Lymphocytes % 14.7 % (21.2-54.2); Mean Corpuscular HGB Conc 34.1 GM/DL (32-36); Mean Corpuscular Hemoglobin 29 PG (27-34); Mean Corpuscular Volume 85.9 FL (87-102); Mean Platelet Volume 10.6 FL (9.6-12.0); Monocytes # 0.6 10*3/uL (0.11-0.8); Monocytes % 4.7 % (1.7-12.7); Neutrophils # 9.7 10*3/uL (1.4-7.4); Neutrophils % 78.7 % (38.7-73.9); Platelet Count 230 T/CUMM (130-400); Red Blood Count 4.75 MC/CUMM (3.8-5.5); Red Cell Distribution Width 13.5 % (9.3-17.3); White Blood Count 12.3 T/CUMM (4-12)
[2017-09-12] MEDS ORDERED: diphenhydrAMINE 50 MG/1 ML VIAL ONE (01:36)
[2017-09-12 01:42] LABS: PT Patient Result 10.1 SECS
[2017-09-12] MEDS ORDERED: diphenhydrAMINE 50 MG/1 ML VIAL IV STA (01:53)
[2017-09-12 01:59] LABS: Albumin 4.3 G/DL (3.4-5.0); Bilirubin,Total 1.1 MG/DL (0.2-1.0); Calcium 9.6 MG/DL (8.5-10.1); Total Protein 7.8 G/DL (6.4-8.3)
[2017-09-12 02:00] LABS: Osmolality,Calculated 292.4 MOS/KG (273-304); Potassium 3.7 MMOL/L (3.5-5.1)
[2017-09-12] MEDS ORDERED: INSULIN REGULAR 100 UNIT/ML IV STA (02:46)
[2017-09-12] MEDS ORDERED: PROMETHAZINE INJ 25 MG in SODIUM CHLORIDE 0.9% 50 ML IV STA (02:49)
[2017-09-12] MEDS ORDERED: PROMETHAZINE 25 MG/1 ML VIAL ONE (02:53)
[2017-09-12 03:26] LABS: Apearance,Urine CLEAR (Clear); Bilirubin,Urine Negative (Negative); Blood, Urine Negative (Negative); Glucose,Urine (UA) >=500 mg/dL (Negative); Hyaline Casts,Urine 4 /LPF (0-3); Ketones,Urine Negative (Negative); Mucus,Urine Occasional /LPF (Occasional); Nitrite,Urine Negative (Negative); Protein,Urine Negative; Urine Color Yellow (Yellow); Urine Specific Gravity 1.023 (1.001-1.035)
[2017-09-12] MEDS ORDERED: DEXTROSE 50% 25 GM/50 ML VIAL IV PRN (05:32)
[2017-09-12] MEDS ORDERED: GLUCAGON 1 MG VIAL IM PRN (05:32)
[2017-09-12] MEDS ORDERED: LIDOCAINE 2% TOP JELLY 5 ML TUBE TOP ONE (05:36)
[2017-09-12] MEDS ORDERED: BENZOCAINE/BUTAMBEN/TETRACAINE SPRAY 20 GM CAN TOP ONE (05:37)
[2017-09-12] MEDS: SODIUM CHLORIDE 0.9% 1,000 ML IV SCH ×2 (06:15→18:00)
[2017-09-12] MEDS ORDERED: MEPERIDINE 50 MG/1 ML VIAL IV PRN (07:54)
[2017-09-12] MEDS: INSULIN REGULAR 100 UNIT/ML SUBCUT SCH ×3 (08:32→18:42)
[2017-09-12] MEDS: ENOXAPARIN 40 MG/0.4 ML SYRINGE SUBCUT SCH (10:16)
[2017-09-12] MEDS ORDERED: diphenhydrAMINE 50 MG/1 ML VIAL IV ONE (10:32)
[2017-09-12] MEDS: ONDANSETRON 4 MG/2 ML VIAL IV PRN ×2 (10:41→20:35)
[2017-09-12] MEDS: LOSARTAN 50 MG TABLET PO SCH (12:11)
[2017-09-12] MEDS: PHENOL 1.4% THROAT SPRAY 177 ML BOTTLE PO PRN (12:16)
[2017-09-12] MEDS: diphenhydrAMINE 50 MG/1 ML VIAL IV PRN (15:28)
[2017-09-12] MEDS ORDERED: hydrALAZINE 20 MG/1 ML VIAL IV PRN (16:00)
[2017-09-12] MEDS ORDERED: POTASSIUM CHLORIDE INJ 10 MEQ in LACTATED RINGERS 1,000 ML IV SCH (17:30)
[2017-09-12 19:10] LABS: Risk Ratio 5.71; VLDL CHOLESTEROL 96.2 MG/DL
[2017-09-12] MEDS ORDERED: POTASSIUM CHLORIDE INJ 20 MEQ in LACTATED RINGERS 1,000 ML IV SCH (20:00)
[2017-09-12] MEDS: LACTATED RINGERS 1,000 ML IV SCH (20:27)
[2017-09-12] MEDS: POTASSIUM CHLORIDE RIDER 10 MEQ in PREMIX 1 EACH IV SCH (20:35)
[2017-09-13] MEDS: ONDANSETRON 4 MG/2 ML VIAL IV PRN ×2 (00:24→19:06)
[2017-09-13] MEDS: LACTATED RINGERS 1,000 ML IV SCH ×4 (00:26→18:50)
[2017-09-13] MEDS: POTASSIUM CHLORIDE RIDER 10 MEQ in PREMIX 1 EACH IV SCH ×4 (00:27→12:55)
[2017-09-13] MEDS: INSULIN REGULAR 100 UNIT/ML SUBCUT SCH ×4 (00:29→19:11)
[2017-09-13] MEDS: diphenhydrAMINE 50 MG/1 ML VIAL IV PRN ×3 (00:34→22:40)
[2017-09-13 05:43] LABS: Hematocrit 35.5 VOL% (42.0-52.0); Hemoglobin 12.2 GM/DL (14.0-18.0); Mean Corpuscular HGB Conc 34.4 GM/DL (32-36); Mean Corpuscular Hemoglobin 30 PG (27-34); Mean Corpuscular Volume 86.2 FL (87-102); Mean Platelet Volume 10.6 FL (9.6-12.0); Platelet Count 180 T/CUMM (130-400); Red Blood Count 4.12 MC/CUMM (3.8-5.5); Red Cell Distribution Width 13.6 % (9.3-17.3); White Blood Count 7.4 T/CUMM (4-12)
[2017-09-13 05:44] LABS: Basophils % 0.3 % (0.0-0.8); Eosinophils # 0.2 10*3/uL (0.0-0.87); Eosinophils % 2.3 % (0.00-10.9); Immature Granulocytes % 0.3 %; Immature Granulocytes Absolute 0.02 #; Lymphocytes # 2.3 10*3/uL (1.4-4.0); Lymphocytes % 30.5 % (21.2-54.2); Monocytes # 0.4 10*3/uL (0.11-0.8); Monocytes % 5.6 % (1.7-12.7); Neutrophils # 4.5 10*3/uL (1.4-7.4)
[2017-09-13 06:13] LABS: Albumin 3.4 G/DL (3.4-5.0); Bilirubin,Direct 0.28 MG/DL (0.0-0.20); Bilirubin,Indirect 1.2 MG/DL (0.0-1.0); Bilirubin,Total 1.5 MG/DL (0.2-1.0); Total Protein 6.5 G/DL (6.4-8.3)
[2017-09-13 06:15] LABS: Albumin 3.6 G/DL (3.4-5.0); Bilirubin,Total 1.6 MG/DL (0.2-1.0); Calcium 8.6 MG/DL (8.5-10.1); Osmolality,Calculated 280.4 MOS/KG (273-304); Potassium 3.4 MMOL/L (3.5-5.1); Total Protein 6.4 G/DL (6.4-8.3)
[2017-09-13] MEDS: LOSARTAN 50 MG TABLET PO SCH (09:09)
[2017-09-13] MEDS ORDERED: POTASSIUM CHLORIDE 20 MEQ TABLET PO ONE (12:36)
[2017-09-13 13:00] LABS: Hepatitis A Ab IgM Quant 0.22 Index; Hepatitis A Ab IgM Result Negative (Negative); Hepatitis B Core IgM Quant 0.14 Index; Hepatitis B Core IgM Result Negative (Negative); Hepatitis B Surface Ag Quant < 0.10 Index; Hepatitis B Surface Ag Result Negative (Negative); Hepatitis C Virus Ab Result Negative (Negative)
[2017-09-13] MEDS: amLODIPine 5 MG TABLET PO SCH (13:12)
[2017-09-13] MEDS: PHENOL 1.4% THROAT SPRAY 177 ML BOTTLE PO PRN ×2 (13:14→22:39)
[2017-09-13] MEDS ORDERED: ACETAMINOPHEN 325 MG TABLET PO PRN (15:27)
[2017-09-13] MEDS: ENOXAPARIN 40 MG/0.4 ML SYRINGE SUBCUT SCH (16:20)
[2017-09-14] MEDS: INSULIN REGULAR 100 UNIT/ML SUBCUT SCH ×3 (00:38→13:29)
[2017-09-14] MEDS: LACTATED RINGERS 1,000 ML IV SCH (04:26)
[2017-09-14] MEDS ORDERED: PROPOFOL 200 MG/20 ML VIAL IV ONE (08:33)
[2017-09-14] MEDS ORDERED: LIDOCAINE 1% 5 ML VIAL ONE (08:33)
[2017-09-14 10:55] VITALS: BP 146/87
[2017-09-14] MEDS: LOSARTAN 50 MG TABLET PO SCH (10:58)
[2017-09-14] MEDS: amLODIPine 5 MG TABLET PO SCH (10:58)
[2017-09-14] MEDS: ONDANSETRON 4 MG/2 ML VIAL IV PRN (11:01)
[2017-09-14] MEDS ORDERED: OMEGA 3 ACID ETHYL ESTERS 1 GM CAPSULE PO SCH (12:00)
[2017-09-14] MEDS ORDERED: ATORVASTATIN 10 MG TABLET PO SCH (12:00)
[2017-09-14] MEDS: PHENOL 1.4% THROAT SPRAY 177 ML BOTTLE PO PRN (13:32)
== END 2017-09-14 15:50 | disposition home or self-care (01) | DRG 388 ==
LOC: N.ED 00:19 → N.EDINP 05:32 → SUATTDRO 05:32 → N.3E 06:08
PROVIDERS: ADMIT Internal Medicine; ATTEND Internal Medicine